=== PATIENT | female | born 1970 | race Caucasian/White ===

== ENCOUNTER → 2018-06-21 14:08 | Outpatient (CLI) | payer BC, SELFPAY ==
--- NOTE | 2018-06-21 14:11 | MM_ITS ---
MM Dig screening mamm BI w/CAD ORDERING PHYSICIAN : Sofi Pierre MD PATIENT AGE: 48 years GENDER: Female COMPARISON: April 2016, 2016, 2014, INDICATION: ITS.REASON: Routine Screening Mammogram. No hormones. No new complaints. Noncontributory family history. Bilateral breast implants .:. TECHNIQUE: Dom technique utilized. CC & MLO images were obtained of the breast tissue overlying implant, as well as a second set of images including the breast implant. Mammography is inherently limited due to the implants is a could obscure areas of breast R2 CAD reviewed. FINDINGS: Stable mild asymmetry. Mild to moderate breast tissue overlying the implants. We again see slightly denser fibroglandular ductal elements in the right retroareolar and than left. There is a island of fibroglandular tissue upper-outer quadrant left breast which appears stable no new, or significant findings either breast. The breast implants are again noted and appear recently stable. Overall no new areas of significant concern identified. IMPRESSION: 1.. Stable bilateral mammogram. With Bilateral breast implants again noted. 2. No new areas of concern.. Bilateral follow-up in one year recommended BI-RADS Category: 1 Negative RECOMMENDED FOLLOW-UP: 1YR 1 YEAR FOLLOW-UP (A letter has been sent to the patient regarding results of the study.)
== END ==
PROVIDERS: PCP Family Medicine; Visit Provider Obstetrics & Gynecology
DX: Z12.31 Encounter for screening mammogram for malignant neoplasm of breast (principal)
CPT/HCPCS: 77067

== ENCOUNTER → 2019-09-01 15:22 | Outpatient (CLI) | payer BC, SELFPAY ==
--- NOTE | 2019-09-01 | XR_ITS ---
PROCEDURE: XR ANKLE WT BEARING RT MIN 3V CLINICAL INDICATION: PAIN IN RT. FOOT Pain and swelling COMPARISON: ANKL3 ANKLE-LT-3 VIEWS from 02/15/2016 HEELL HEEL (OSCALSIS)-LT from 02/15/2016 HEELR HEEL (OSCALSIS)-RT from 02/15/2016 ANKR3 ANKLE-RT-3 VIEWS from 02/15/2016 XR FOOT WT BEARING RT 3V from 09/01/2019 FINDINGS: No fracture, dislocation, lytic change, or blastic change evident. No significant degenerative change. There is mild soft tissue swelling medially and laterally. IMPRESSION: Mild soft tissue swelling otherwise negative Dictated by: Jacobo Slaughter MD 09/01/2019 17:53 Electronically signed by Jacobo Slaughter MD in [place] 09/01/2019 17:53
--- NOTE | 2019-09-01 | XR_ITS ---
PROCEDURE: XR FOOT WT BEARING RT 3V CLINICAL INDICATION: PAIN IN RT. FOOT Pain and swelling COMPARISON: No exams were available for comparison FINDINGS: No fracture or dislocation. No lytic or blastic change. There is normal mineralization. The joint spaces are well-preserved. No significant degenerative/arthritic changes. No erosive changes evident. Other findings:None. IMPRESSION: No acute findings. Dictated by: Jacobo Slaughter MD 09/01/2019 17:54 Electronically signed by Jacobo Slaughter MD in [place] 09/01/2019 17:54
== END ==
PROVIDERS: PCP Family Medicine; Visit Provider Obstetrics & Gynecology
DX: M79.671 Pain in right foot (principal)
CPT/HCPCS: 73610; 73630

== ENCOUNTER → 2020-06-10 08:23 | Outpatient (CLI) | payer BC, SELFPAY ==
--- NOTE | 2020-06-10 08:23 | MM_ITS ---
PROCEDURE: MM DIG SCREENING MAMM BI W/CAD Digital Breast Tomosynthesis Included CLINICAL INDICATION: screening There is no personal or family history of breast cancer. The patient has bilateral breast implants. COMPARISON: MG DMSI DIG MAMM-SCREEN IMPLANT from 05/01/2016 MG DMSI DIG MAMM-SCREEN IMPLANT W/CAD from 05/01/2017 MG SCBI MM Dig screening mamm BI w/CAD from 06/21/2018 TECHNIQUE: Standard CC and MLO images and 3D Tomosynthesis was obtained. R2 CAD reviewed. FINDINGS: The breast implants appear intact with no evidence of leakage moderate scattered fibroglandular densities are seen in the osage breast tissue around the implants. Again slightly increased asymmetric glandular elements are seen right breast. Archie images reveal no suspicious abnormality either breast. There is metallic nipple jewelry left breast. There are no suspicious microcalcifications. IMPRESSION: Stable exam with [id number] fibroglandular densities around both breast implants BI-RAD Category: 2 Benign Finding(s) FOLLOW-UP: 1YR 1 Year Follow-up (A letter has been sent to the patient regarding results of the study.) Dictated by: Dr. Tavon Bañuelos MD 06/17/2020 14:22 Dr. Tavon Bañuelos MD in [place] 06/17/2020 14:22
== END ==
PROVIDERS: PCP Family Medicine; Visit Provider Obstetrics & Gynecology
DX: Z12.31 Encounter for screening mammogram for malignant neoplasm of breast (principal)
CPT/HCPCS: 77063; 77067

== ENCOUNTER → 2020-08-05 11:15 | Outpatient (CLI) | payer BC, SELFPAY ==
[2020-08-05 12:21] LABS: Chol/HDL Ratio 2.8 (1-3.5); Cholesterol 206 mg/dl (140-200); HDL Cholesterol 74 mg/dl (40-60); Triglycerides 120 mg/dl (30-150); VLDL Cholesterol 24 mg/dL (0-40)
[2020-08-05 12:32] LABS: Direct LDL Cholesterol 102.81 mg/dL (100-129)
== END ==
PROVIDERS: Visit Provider Physician Assistant
DX: E78.89 Other lipoprotein metabolism disorders (principal)
CPT/HCPCS: 36415; 80061

== ENCOUNTER → 2021-06-24 09:48 | Outpatient (CLI) | payer BC, SELFPAY ==
--- NOTE | 2021-06-24 09:48 | MM_ITS ---
PROCEDURE INFORMATION: Exam: MG Bilateral Screening 3D Mammography Exam date and time: 06/24/2021 9:48 AM Age: 51 years old Clinical indication: Encounter for screening mammogram for malignant neoplasm of breast TECHNIQUE: Imaging protocol: Bilateral screening tomosynthesis and 2D mammography including computer-aided detection (CAD) when performed. COMPARISON: 1. MG MM DIG SCREENING MAMM BI W/CAD 06/10/2020 8:32 AM 2. MG SCBI MM Dig screening mamm BI w/CAD 06/21/2018 2:42 PM FINDINGS: MAMMOGRAPHY: Breast composition: The breast tissue is heterogeneously dense, which may obscure small masses. Mass: None. Architectural distortion: None. Calcifications: No suspicious calcifications. Asymmetric density: None. Skin thickening: None. Axillary adenopathy: None. Implants: Subpectoral saline breast implants are present. IMPRESSION: No mammographic evidence of malignancy. Annual screening is recommended unless otherwise clinically indicated. ASSESSMENT: BI-RADS Category 1: Negative
== END ==
PROVIDERS: PCP Family Medicine; Visit Provider Obstetrics & Gynecology
DX: Z12.31 Encounter for screening mammogram for malignant neoplasm of breast (principal)
CPT/HCPCS: 77063; 77067

== ENCOUNTER → 2022-07-19 08:23 | Outpatient (CLI) | payer BC, SELFPAY ==
--- NOTE | 2022-07-19 08:23 | MM_ITS ---
PROCEDURE INFORMATION: Exam: MG Bilateral Screening 3D Mammography Exam date and time: 07/19/2022 8:15 AM Age: 52 years old Clinical indication: Screening examination; Additional info: Screening mammogram TECHNIQUE: Imaging protocol: Bilateral Screening tomosynthesis and 2D mammography including computer-aided detection (CAD) when performed. COMPARISON: 1. MG MM DIG SC MAMM IMPLANT BI CAD 06/24/2021 9:43 AM 2. MG MM DIG SCREENING MAMM BI W/CAD 06/10/2020 8:32 AM 3. MG SCBI MM Dig screening mamm BI w/CAD 06/21/2018 2:42 PM FINDINGS: MAMMOGRAPHY: Breast composition: There are scattered areas of fibroglandular density. Mass: No suspicious masses. Architectural distortion: No suspicious distortion. Calcifications: No suspicious calcifications. Asymmetric density: None. Skin thickening: None. Axillary adenopathy: None. Implants: Bilateral subpectoral saline breast implants noted. IMPRESSION: No mammographic evidence of malignancy. Annual screening is recommended unless otherwise clinically indicated. ASSESSMENT: BI-RADS Category 1: Negative
== END ==
PROVIDERS: PCP Family Medicine; Visit Provider Obstetrics & Gynecology
DX: Z12.31 Encounter for screening mammogram for malignant neoplasm of breast (principal)
CPT/HCPCS: 77063; 77067

== ENCOUNTER → 2022-08-21 12:09 | Outpatient (CLI) | payer BC, SELFPAY ==
[2022-08-22 13:49] LABS: H. pylori Breath Test Negative (Negative)
== END ==
PROVIDERS: PCP Family Medicine; Visit Provider Family Medicine
DX: R12 Heartburn (principal)
CPT/HCPCS: 83013

== ENCOUNTER 2022-10-24 09:41 | Day surgery (SDC) | payer BC, SELFPAY ==
[2022-10-24 09:56] VITALS: BP 134/77; PULSE 88; RESP 18; TEMP 37.5; O2SAT 99; BMI 27.3
--- NOTE | 2022-10-24 10:06 | P.PCN_ITS ---
Procedure: Date: 10/24/22 Patient Date of :: 1970 Procedure Performed:: Colonoscopy Indications:: Screening Performing Provider:: Sherman Dominguez MD Referring Provider:: . Sedation:: Monitored anesthesia care Procedure:: After informed consent was obtained the patient was taken to the endoscopy suite. Sedation ensued after the patient was transferred to the left lateral decubitus position. Pulse, blood pressure, and oxygen saturation were monitored throughout the procedure. Digital rectal exam revealed no significant abnormality. The colonoscope was placed in position. The entire colon was eval uated. The colonoscope was carefully removed and the patient was transferred to recovery in stable condition. Please see findings and specimens below for detail. Findings:: Bowel preparation fair to moderate Significant spasticity/lack of relaxation Moderate tortuosity Specimens:: none Recommendations:: Repeat colonoscopy in 2-3 years with extended/alternate bowel preparation. If repeat colonoscopy reveals no significant abnormality the timing of future colonoscopies will likely be extended. Complications:: No immediate Estimated blood obtained (mL): 0
[2022-10-24 10:14] VITALS: O2SAT 97
--- NOTE | 2022-10-24 10:20 | EXP.ANES.CKL ---
[facility] Disclaimer: The information contained in this section may have been updated after the patient was seen, as this information can be updated by other users. Medical History Allergies Asthma History of gastroesophageal reflux (GERD) Neuropathy Skin cancer Surgical History History of breast augmentation Family History Other Diabetes FHx: multiple myeloma Heart attack Social History Smoking Status: Never smoker alcohol intake: never substance use type: denies use current occupational status: employed Travel in the last 8 weeks: None caffeine: Yes [facility] Anesthesia Checklist Patient Identification Patient Identification: Arm Band Structural Data Admitted From: Home Planned Operative Procedure/s: colonoscopy Consent for Planned Operative Procedure(s) Verified: Yes Verified Documents: Surgical Consent and History and Physical NPO Status Verified Time NPO: 00:00 Additional verifications Anesthesia Reactions: No Airway Assessment C-Spine Mobility Assessed: Yes TMJ Mobility Assessed: Yes Dentition: Good Dentition Neurological Assessment Level of Consciousness: Awake and Alert Anesthesia Plan Anesthesia Risk discussed: Yes Anesthesia Plan: Verified ASA Class: II Anesthesia Type: MAC
[2022-10-24 11:03] VITALS: BP 102/56; PULSE 92; RESP 17; TEMP 36.2; O2SAT 100
[2022-10-24 11:13] VITALS: BP 99/58; PULSE 92; RESP 16; O2SAT 100
[2022-10-24 11:23] VITALS: BP 111/70; PULSE 90; RESP 17; O2SAT 100
[2022-10-24 11:33] VITALS: BP 120/73; PULSE 74; RESP 17; O2SAT 100
== END 2022-10-24 10:15 | disposition home or self-care (01) ==
PROVIDERS: PCP Family Medicine; Visit Provider Surgery
PROC: 0DJD8ZZ Inspection of Lower Intestinal Tract, Via Natural or Artificial Opening Endoscopic (ICD-10-PCS; CPT 45378; principal; 2022-10-24 10:30)
DX: Z12.11 Encounter for screening for malignant neoplasm of colon (principal); Z79.899 Other long term (current) drug therapy
CPT/HCPCS: 45378; J2704

== ENCOUNTER 2023-11-19 08:25 | Outpatient (CLI) | payer BC, SELFPAY ==
--- NOTE | 2023-11-19 08:26 | MM_ITS ---
PROCEDURE INFORMATION: Exam: MG Bilateral Screening 3D Mammography Exam date and time: 11/19/2023 8:20 AM Age: 53 years old Clinical indication: Screening mammogram TECHNIQUE: Imaging protocol: Bilateral Screening tomosynthesis and 2D mammography including computer-aided detection (CAD) when performed. COMPARISON: 1. MG MM DIG SC MAMM IMPLANT BI CAD 07/19/2022 8:15 AM 2. MG MM DIG SC MAMM IMPLANT BI CAD 06/24/2021 9:43 AM 3. MG MM DIG SCREENING MAMM BI W/CAD 06/10/2020 8:32 AM 4. MG SCBI MM Dig screening mamm BI w/CAD 06/21/2018 2:42 PM FINDINGS: MAMMOGRAPHY: Breast composition: There are scattered areas of fibroglandular density. Mass: None. Architectural distortion: No new or suspicious architectural distortion. Calcifications: No new or suspicious calcifications are present Asymmetric density: No new or suspicious asymmetric density is present Skin thickening: None. Axillary adenopathy: None. Implants: Subpectoral saline augmentation implants are present. IMPRESSION: No mammographic evidence of malignancy. Recommend annual screening mammography unless otherwise clinically indicated. ASSESSMENT: BI-RADS category 1: Negative.
== END 2023-11-19 23:59 | disposition home or self-care (01) ==
LOC: RAD 08:26
PROVIDERS: PCP Family Medicine; Visit Provider Obstetrics & Gynecology
DX: Z12.31 Encounter for screening mammogram for malignant neoplasm of breast (principal)
CPT/HCPCS: 77063; 77067

== ENCOUNTER 2024-11-18 08:39 | Day surgery (SDC) | payer BC, SELFPAY ==
[2024-11-18 08:55] VITALS: BP 132/77; PULSE 76; RESP 18; TEMP 36.7; O2SAT 99; BMI 24.9
[2024-11-18] MEDS: LACTATED RINGERS 1000ML 1,000 ML 50 ML IV (09:00)
--- NOTE | 2024-11-18 09:26 | P.HP_ITS ---
HPI HPI HPI: This is a 54-year-old female who presents for screening colonoscopy. Note: In October 2022 she underwent a colonoscopy that was somewhat complicated by severe spasticity/lack of relaxation. Her bowel preparation was fair to moderate. Moderate tortuosity also noted. A short-term reevaluation deemed warranted. [facility] Disclaimer: The information contained in this section may have been updated after the patient was seen, as this information can be updated by other users. Medical History (Updated 11/18/24 @ 09:27 by Sherman Dominguez MD) Asthma Neuropathy History of gastroesophageal reflux (GERD) Allergies Skin cancer Surgical History History of breast augmentation Family History Diabetes Heart attack FHx: multiple myeloma Social History Smoking Status: Never smoker alcohol intake: never substance use type: denies use current occupational status: employed Travel in the last 8 weeks?: None caffeine: Yes Have you lived/traveled outside US in past 30 days?: No Contact w/someone who lives/traveled outside US past 30 days?: No Exposure to someone with infectious disease in past 14 days?: No Do you have a fever (greater than 100.4 F or 38 C)?: No Have you tested positive for COVID-19?: No Exposed to someone with COVID-19 in past 14 days?: No Do you have a sore throat?: No Do you have a cough?: No Do you have any weakness?: No Do you have any diarrhea?: No Are you experiencing any unusual bleeding?: No Do you have any muscle aches/pain?: No Do you have any abdominal pain?: No Are you experiencing loss of taste or smell?: No Other Medical History Have you received the Pneumonia Vaccine: No Review of Systems Review of Systems Review of systems:: pertinent systems reviewed and negative unless documented below Meds Home Medications and Allergies Home Medications ?Medication ?Instructions ?Recorded ?Confirmed ?Type omeprazole 40 mg capsule,delayed 40 mg PO NEEDED PRN gerd 11/18/24 11/18/24 History release New Prescriptions to Start Prescriptions: Allergies Allergy/AdvReac Type Severity Reaction Status Date / Time No Known Allergies Allergy Verified 11/18/24 08:53 Exam Data for Last 24 hours Vital signs and Labs for Last 24 Hours: Temp Pulse Resp BP Pulse Ox O2 Del Method 98.1 F 76 18 132/77 99 Room Air 11/18/24 08:55 11/18/24 08:55 11/18/24 08:55 11/18/24 08:55 11/18/24 08:55 11/18/24 08:55 I & O for Last 24 hours: Intake & Output 11/15/24 11/16/24 11/17/24 11/18/24 11:59 11:59 11:59 11:59 Weight 145 lb Constitutional Constitutional: no acute distress *Routine HEENT Exam Head: Present normocephalic Eye: Present EOMI ENT: Present mucous membranes moist *Routine Neck Exam Neck: Present full ROM *Routine Respiratory Exam Respiratory: Absent respiratory distress *Routine Cardiovascular Exam Cardiovascular: Absent tachycardia *Routine Abdominal Exam Abdominal: Present soft *Routine Rectal Exam Rectal:: deferred *Routine Genitalia Exam Genitalia:: deferred *Routine Extremities Exam Extremities: Present full ROM *Routine Skin Exam Skin: Absent erythema *Routine Neurological Exam Neurological: Present alert Assessment and Plan *Assessment and plan (1) Encounter for screening colonoscopy: Status: Acute Category: Medical Code(s): Z12.11 - Encounter for screening for malignant neoplasm of colon Plan: Colonoscopy today I have discussed the risks and benefits including, but not limited to: Bleeding Infection Damage to surrounding tissue Inherent risks of sedation The patient agrees to proceed.
--- NOTE | 2024-11-18 09:27 | HMH.SCOPE ---
Procedure: Date: 11/18/24 Patient Date of :: 1970 Procedure Performed:: Colonoscopy with polypectomy by means other than snare Indications:: Screening Note colonoscopy in October 2022 was complicated by fairly severe spasticity/lack of relaxation. Moderate tortuosity also noted. Her bowel preparation was fair to moderate. A short-term reevaluation deemed warranted. Performing Provider:: Sherman Dominguez MD Referring Provider:: . Sedation:: Monitored anesthesia care Procedure:: After informed consent was obtained the patient was taken to the endoscopy suite. Sedation ensued after the patient was transferred to the left lateral decubitus position. Pulse, blood pressure, and oxygen saturation were monitored throughout the procedure. Digital rectal exam revealed no significant abnormality. The colonoscope was placed in position. The entire colon was evaluated. The colonoscope was carefully removed and the patient was transferred to recovery in stable condition. Please see findings and specimens below for detail. Findings:: Bowel preparation moderate Hemorrhoidal tags Significant spasticity/lack of relaxation Fairly significant tortuosity Small periappendiceal polyp Specimens:: Small periappendiceal polyp (cold biopsy forceps) Recommendations:: Timing of repeat colonoscopy is pending pathology will likely be between 3-5 years secondary to polyp, moderate bowel preparation, and significant spasticity/lack of relaxation. Complications:: No immediate Estimated blood obtained (mL): 1 Colonoscopy Component Colonoscopy Component Was a colonoscopy performed during today's procedure?: Yes Recommended follow up colonoscopy of at least 10 years?: No If no, follow up colonoscopy recommended in ___ years?: (See above) Reason for not recommending >/= 10 yr follow-up interval?: (See above)
--- NOTE | 2024-11-18 09:28 | P.PNANES_ITS ---
[facility] Disclaimer: The information contained in this section may have been updated after the patient was seen, as this information can be updated by other users. Medical History (Updated 11/18/24 @ 09:27 by Sherman Dominguez MD) Asthma Neuropathy History of gastroesophageal reflux (GERD) Allergies Skin cancer Surgical History History of breast augmentation Family History Other Diabetes FHx: multiple myeloma Heart attack Social History Smoking Status: Never smoker alcohol intake: never substance use type: denies use current occupational status: employed Travel in the last 8 weeks?: None caffeine: Yes Have you lived/traveled outside US in past 30 days?: No Contact w/someone who lives/traveled outside US past 30 days?: No Exposure to someone with infectious disease in past 14 days?: No Do you have a fever (greater than 100.4 F or 38 C)?: No Have you tested positive for COVID-19?: No Exposed to someone with COVID-19 in past 14 days?: No Do you have a sore throat?: No Do you have a cough?: No Do you have any weakness?: No Do you have any diarrhea?: No Are you experiencing any unusual bleeding?: No Do you have any muscle aches/pain?: No Do you have any abdominal pain?: No Are you experiencing loss of taste or smell?: No [facility] Anesthesia Checklist Patient Identification Patient Identification: Arm Band Structural Data Admitted From: Home Planned Operative Procedure/s: Colonoscopy Consent for Planned Operative Procedure(s) Verified: Yes Verified Documents: Surgical Consent and History and Physical NPO Status Verified Time NPO: 05:00 (finished prep) Additional verifications Anesthesia Reactions: No Airway Assessment Mallampati Score:: Class II C-Spine Mobility Assessed: Yes TMJ Mobility Assessed: Yes Dentition: Good Dentition Neurological Assessment Level of Consciousness: Awake, Alert and Appropriate Anesthesia Plan Anesthesia Risk discussed: Yes Anesthesia Plan: Verified ASA Class: II Anesthesia Type: MAC
[2024-11-18 09:37] VITALS: O2SAT 99
[2024-11-18 10:17] VITALS: BP 97/59; PULSE 86; RESP 16; TEMP 36.1; O2SAT 98
[2024-11-18 10:27] VITALS: BP 132/63; PULSE 75; RESP 16; O2SAT 99
[2024-11-18 10:37] VITALS: BP 100/68; PULSE 70; RESP 16; O2SAT 99
== END 2024-11-18 10:37 | disposition home or self-care (01) ==
PROVIDERS: PCP Family Medicine; Visit Provider Surgery
PROC: 0DJD8ZZ Inspection of Lower Intestinal Tract, Via Natural or Artificial Opening Endoscopic (ICD-10-PCS; CPT 45380; principal; 2024-11-18 10:00)
DX: Z12.11 Encounter for screening for malignant neoplasm of colon (principal); K64.9 Unspecified hemorrhoids; K63.5 Polyp of colon
CPT/HCPCS: 45380; J2704; J7120

== ENCOUNTER 2024-12-29 12:50 | Outpatient (RCR) | payer BC, SELFPAY | END 2025-01-05 23:59 | disposition home or self-care (01) | LOC: OT 12:50 | PROVIDERS: PCP Family Medicine; Visit Provider Psychiatry & Neurology Clinical Neurophysiology | DX: G60.0 Hereditary motor and sensory neuropathy (principal) | CPT/HCPCS: 97166 ==

== ENCOUNTER 2024-12-29 12:52 | Outpatient (RCR) | payer BC, SELFPAY | END 2024-12-29 23:59 | disposition home or self-care (01) | LOC: PT 12:52 | PROVIDERS: PCP Family Medicine; Visit Provider Psychiatry & Neurology Clinical Neurophysiology | DX: G60.0 Hereditary motor and sensory neuropathy (principal) | CPT/HCPCS: 97161 ==

== ENCOUNTER 2025-01-19 16:18 | Outpatient (CLI) | payer BC, SELFPAY ==
--- OUTSIDE RECORDS SUMMARY | 2023-11-05 06:30 | XMS_ITS ---
Author Organization [facility] Address [address] [facility] [address] [place] [address] Care Team Providers Care Civil Rights Representative Name Role Phone Kaylee Tapia Unavailable [phone] Allergies No Known Allergies Social History Sex Assigned At : Social History Observation Description Sex Assigned At Female Social History Additional Details Category Social Info Options Details Miscellaneous: Domestic violence: No Section Notes: Are you interested in a treatment program?: No Do you have any jainism or culture customs that your provider should know about?: No Do you now or have you ever smoked or used tobacco products?: No Have you ever used any recreational drugs?: Yes Have you had a drink containing alcohol in the last year?: Yes How long since you last used?: 3 months How often did you have a drink containing alcohol in the last year?: Less than monthly How often do you use?: Seldom Type of use: Marijuana Would you object to blood products in the event of an emergency?: No Encounters Encounter Location Date Provider Diagnosis [facility] [address] [place] [address] [address] [place] [address] 11/05/2023 Kaylee Tapia Plan Of Treatment No Information Progress Notes * Maria Isabel ROSENBAUMOB:1970 ( 54 yo F)Acc No.[id number]:11/05/2023 Patient: Sylvia CEBALLOS :1970 A ge:53 Y S ex:Female Address:[facility] [place], [address] Subjective: * Chief Complaints: * Medical History: Menopausal None None of these apply Asthma GERD/Acid Reflux 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 Special assistance needed for care: None * 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 L ast Colon Cancer Screening Date: (Historical) normal. B irth control (Historical) N othing. A bnormal pap smear (Historical) N o. S exually Transmitted Infections (STIs) H uman Papilloma Virus (HPV). L ast Pap Smear/HPV Date (Historical) clear. M enopause (Historical) B artemio at age: [age] S ymptoms: W [age] Gain, Decrease Libido * Surgical History: Breast Augmentation * Family History: F amily History Verified.. Family History: Family history known Heart Disease: Maternal Grandfather Stroke: Paternal Grandfather Please list all other disorder(s) and specify the relationship for each: Multiple Myloma- mom. * Social History: M iscellaneous: D omestic violence: No. S ocial History Verified. A re you interested in a treatment program?: No Do you have any jainism or culture customs that your provider should know about?: No Do you now or have you ever smoked or used tobacco products?: No Have you ever used any recreational drugs?: Yes Have you had a drink containing alcohol in the last year?: Yes How long since you last used?: 3 months How often did you have a drink containing alcohol in the last year?: Less than monthly How often do you use?: Seldom Type of use: Marijuana Would you object to blood products in the event of an emergency?: No. * Allergies: N .K.D.A. * * Date:
--- OUTSIDE RECORDS SUMMARY | 2025-01-19 16:19 | XMS_ITS | Clinical Summary ---
Author Organization [facility] Address [address] [place] [address] Care Team Providers Care Executive Creative Director Name Role Phone Bhavik Wall MD Primary Care Provider Social History Tobacco Use Types Packs/Day Years Used Date Smoking Tobacco: Never Assessed Comments Unknown Sex and Gender Information Value Date Recorded Sex Assigned at Not on file Legal Sex Female 10:23 AM EST Gender Identity Not on file Sexual Orientation Not on file Plan of Treatment Health Maintenance Due Date Last Done Comments Cologuard 1970 Colonoscopy 1970 Colorectal Cancer Screening 1970 FIT 1971 Lipid Screening 1989 Tetanus Vaccination (Every 10 Years) 1989 Cervical Cancer Screening 01/30/1992 Breast Cancer Screening 2021 Pneumococcal Vaccine: 50+ Years (1 of 1 - PCV) 021 Zoster-RZV(Shingrix) (1 of 2) 2021 COVID-19 Vaccine (1 - 2023- season) 2024 Depression Screening 07/09/2024 Influenza Vaccination (#1) 2025 Care Teams Executive Creative Director Relationship Specialty Start Date End Date Bhavik Wall MD [address] [place] [address] [place] [address] PCP - General Family Medicine 05/19/16
--- OUTSIDE RECORDS SUMMARY | 2025-01-19 16:19 | XMS_ITS | Clinical Summary ---
Author Organization [facility] Address [address] [place] [address] Care Team Providers Care All Terrain Vehicle Racer Name Role Phone Bhavik Wall MD Primary Care Provider [phone] Allergies No known active allergies Medications montelukast (Singulair) 10 MG tablet TAKE 1 TABLET BY MOUTH EVERY EVENING NEEDED FOR ALLERGY SEASON FOR 90 DAYS 10/02/2023 Active Encounters Date Type Department Care Team Description 01/02/2025 Telephone [place] [id number] [phone] Zainab Tucker MD 11/27/2024 Orders Only [address] [phone] Zainab Tucker MD Acvmquo-Vxuzt-Jnzba disease (Primary Dx) 11/03/[address] [phone] Zainab Tucker MD HCN - Patient Message (PT order requested) from Last 3 Months Social History Tobacco Use Types Packs/Day Years Used Date Smoking Tobacco: Never Smokeless Tobacco: Never Tobacco Cessation:Counseling Given: Not Answered Alcohol Use Standard Drinks/Week Comments Yes 0 (1 standard drink = 0.6 oz pur e alcohol) couple times a month if that. Comments Unknown Sex and Gender Information Value Date Recorded Sex Assigned at Female 02/19/2024 12:20 PM EDT Legal Sex Female 11:35 AM EDT Gender Identity Female 02/19/2024 12:20 PM EDT Sexual Orientation Straight 02/19/2024 12 :20 PM EDT Last Filed Vital Signs Vital Sign Reading Time Taken Comments Blood Pressure 122/88 02/18/2024 1:01 PM EDT Pulse 75 02/18/2024 1:01 PM EDT Temperature - - Respiratory Rate 18 02/18/2024 1:01 PM EDT Oxygen Saturation 78% 02/18/2024 1:01 PM EDT Inhaled Oxygen Concentration - - Weight 71.3 kg (157 lb 3.2 oz) 02/18/2024 1:01 P M EDT Height 162.6 cm (5' 4 ) 02/18/2024 1:01 PM EDT Body Mass Index 26.98 02/18/2024 1:01 PM EDT Plan of Treatment Upcoming Encounters Date Type Department Care Team (Late st Contact Info) Description 04/20/2025 1:30 PM EDT Office Visit [facility] Orthopaedic Surgery & Sports Medicine [address] [place] [address] Zainab Tucker MD [address] [place] [address] Health Maintenance Due Date Last Done Comments [facility]-Depression Screening 1971 [facility]-HIV Screening 1971 [facility]-Hepatitis C Screening 1971 [facility]-/Child/Adol SDOH Screenings 1971 [facility]- SDOH Screenings 1989 [facility]-Adult SDOH Screenings 1989 [facility]-DTaP,Tdap,and Td Vaccine s (1 - Tdap) 1990 [facility]-Hepatitis B Vaccines (1 of 3 - 19+ 3-dose series) 1990 [facility]-Pap Smear 01/30/1992 [facility]-Cervical Cancer Screening 2001 [facility]-HPV/Cotest 2001 CT Colonography 01/30/2016 Colonoscopy 01/30/2016 FIT-DNA 01/30/2016 FIT 01/30/2016 FOBT 01/30/2016 Sigmoidoscopy 01/30/2016 [facility]-Colorectal Cancer Screening 01/30/2016 [facility]-Breast Cancer Screening 2021 [facility]-Pneumococcal Vaccine: 50 + Years (1 of 1 - PCV) 2021 [facility]-Zoster Vaccines (1 of 2) 2021 07/09/1993 [id number] Vaccine (4 - season) 2024 06/27/2021, 10/18/2020, 09/20/2020 [facility]-Influenza Vaccine (#1) 2025 06/01/2023 [facility]-Obesity Intervention Completed 024, 02/18/2024 HPV Vaccines Aged Out No longer eligi ble based on patient's age to complete this topic [facility]-HIB Vaccines Aged Out No longer e ligible based on patient's age to complete this topic [facility]-Hepatitis A Vaccines Aged Out No longer eligible based on patient's age to complete this topic [facility]-IPV Vaccines Aged Out No longer e ligible based on patient's age to complete this topic [facility]Y-Rotavirus Vaccines Aged Out No lo nger eligible based on patient's age to complete this topic Insurance Care Teams All Terrain Vehicle Racer Relationship Specialty Start Date End Date Bhavki Wall MD [address] [facility] [address] [place] [address] [facility] - General 02/18/24
--- OUTSIDE RECORDS SUMMARY | 2025-01-19 16:19 | XMS_ITS | Encounter Summary ---
Author Organization [facility] Address [address] [place] [address] Care Team Providers Care Crosscutter Name Role Phone Bhavik Wall MD Primary Care Provider [phone] Reason for Visit * Reason Onset Date Comments HCN - Patient Message 11/03/2024 PT order r equested Encounter Details Date Type Department Care Team (Late st Contact Info) Description 11/03/2024 [facility]phone [facility] [address] [place] [address] Zainab Tucker MD [address] [place] [address] HCN - Patient Message (PT order requested) Social History Tobacco Use Types Packs/Day Years Used Date Smoking Tobacco: Never Smokeless Tobacco: Never Alcohol Use Standard Drinks/Week Comments Yes 0 (1 standard drink = 0.6 oz pur e alcohol) couple times a month if that. Comments Unknown Sex and Gender Information Value Date Recorded Sex Assigned at Female 02/19/2024 12:20 PM EDT Legal Sex Female 11:35 AM EDT Gender Identity Female 02/19/2024 12:20 PM EDT Sexual Orientation Straight 02/19/2024 12 :20 PM EDT documented as of this encounter Miscellaneous Notes * Telephone Encounter - Emile Arguelles - 11/04/2024 3:32 PM EDT Emailed patients order * Telephone Encounter - Darell Taveras - 11/03/2024 9:54 AM EDT Patient Phone Message Reason for Call: Patient requesting an order for PT emailed to her at [email or web address] Best contact number and optimal time of day to reach caller: Reachable at [phone] Note: Please do not reply to this message. Follow-up communication and further actions as a result of this message need to be communicated with the patient directly, if the patient is not active onMyChart. If the patient is active on MyChart, they will receive notification of the communication/outcome via [employer]. documented in this encounter Plan of Treatment Upcoming Encounters Date Type Department Care Team (Late st Contact Info) Description 04/20/2025 1:30 PM EDT Office Visit [facility] Orthopaedic Surgery & Sports Medicine [address] [place] [address] Zainab Tucker MD [address] [place] [address] documented as of this encounter Visit Diagnoses Not on filedocumented in this encounter Additional Health Concerns Assessment Noted Time A fall risk assessment has been complete d for the patient 02/18/2024 1:07 PM EDT A Body Mass Index follow-up plan has been documented for the patient 06/27/2024 1:16 PM EST documented as of this encounter Care Teams Crosscutter Relationship Specialty Start Date End Date Bhavik Wall MD [address] [facility] [address] [place] [address] PCP - General 02/18/24 documented as of this encounter
--- OUTSIDE RECORDS SUMMARY | 2025-01-19 16:19 | XMS_ITS | Encounter Summary ---
Author Organization [facility] Address [address] [place] [address] Care Team Providers Care Television Production Technician Name Role Phone Bhavik Wall MD Primary Care Provider [phone] Reason for Referral * Consultation (Routine) - Authorized Specialty Diagnoses / Procedures Referred By Gaurav falk Referred To Contact Occupational Therapy Diagnoses Vivxkca-Vurtr-Lwkxf disease Zainab Tucker MD [address] [address] Phone: tel: fax: [facility] () [address] [place] [address] Phone: tel: fax: Referral ID Status Reason Start Date Expiration Date Visits Requested Visits Authorized [id number] Authorized Consult and Treat 11/27/2024 05/29/2026 1 1 Scheduling Instructions 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 Requesting occupational therapy for improved function. * Consultation (Routine) - Authorized Specialty Diagnoses / Procedures Referred By Gaurav falk Referred To Contact Physical Therapy Diagnoses Rtirrqb-Dgice-Yhocz disease Zainab Tucker MD [address] [address] Phone: tel: fax: [facility] () [address] [place] [address] Phone: tel: fax: Referral ID Status Reason Start Date Expiration Date Visits Requested Visits Authorized [id number] Authorized Consult and Treat 11/27/2024 05/29/2026 1 1 Scheduling Instructions Patient with bilateral lower extremity (foot and leg) deformity, weakness and paresthesias. Physical therapy for evaluation, treatment and gait training. Encounter Details Date Type Department Care Team (Late st Contact Info) Description 11/27/2024 Orders Only [facility] [address] [place] [address] Zainab Tucker MD [address] [place] [address] Mlrolaz-Tqifg-Xxeww disease (Primary Dx) Social History Tobacco Use Types Packs/Day Years [...] as of this encounter Miscellaneous Notes * Progress Notes - Zainab Tucker MD - 11/27/2024 4:28 PM EDT New orders for PT/OT placed for [facility]. documented in this encounter Plan of Treatment Upcoming Encounters Date Type Department Care Team (Late st Contact Info) Description 04/20/2025 1:30 PM EDT Office Visit [facility] Orthopaedic Surgery & Sports Medicine [address] [place] [address] Zainab Tucker MD [address] [place] [address] Scheduled Referrals Name Type Priority Associated Diagnoses Order Schedule Ambulatory referral to Physical Therapy Outpatient Referral Routine Pfqgrvy-Bdptd-Zsvw h disease 1 Occurrences starting 11/27/2024 until 05/30/2026 Ambulatory referral to Occupational Therapy Outpatient Referral Routine Rlzbrck-Cwlso-Mecm h disease 1 Occurrences starting 11/27/2024 until 05/30/2026 documented as of this encounter Visit Diagnoses Diagnosis 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
--- OUTSIDE RECORDS SUMMARY | 2025-01-19 16:19 | XMS_ITS | Encounter Summary ---
Author Organization [facility] Address [address] [place] [address] Care Team Providers Care Interface Designer Name Role Phone Bhavik Wall MD Primary Care Provider [phone] Encounter Details Date Type Department Care Team (Late st Contact Info) Description 01/02/2025 Telephone [facility] [address] [place] [address] Zainab Tucker MD [address] [facility] [address] [place] [address] Social History Tobacco Use Types Packs/Day Years [...] PM EDT documented as of this encounter Plan of Treatment Upcoming Encounters Date Type Department Care Team (Late st Contact Info) Description 04/20/2025 1:30 PM EDT Office Visit [facility] Orthopaedic Surgery & Sports Medicine [address] [place] [address] Zainab Tucker MD [address] [facility] [address] [place] [address] documented as of this encounter Visit Diagnoses Not on filedocumented in this encounter Additional Health Concerns Assessment Noted Time A fall risk assessment has been complete d for the patient 02/18/2024 1:07 PM EDT A Body Mass Index follow-up plan has been documented for the patient 06/27/2024 1:16 PM EST documented as of this encounter Care Teams Interface Designer Relationship Specialty Start Date End Date Bhavik Wall MD [address] [place] [address] PCP - General 02/18/24 documented as of this encounter
--- OUTSIDE RECORDS SUMMARY | 2025-01-19 16:20 | XMS_ITS | Clinical Summary ---
Author Organization [facility] Address [address] [place] [address] Phone Care Team Providers Care Hadoop Software Engineer Name Role Phone Bhavik Wall MD Primary Care Provider [phone] Social History Tobacco Use Types Packs/Day Years Used Date Smoking Tobacco: Never Assessed Comments Unknown Sex and Gender Information Value Date Recorded Sex Assigned at Not on file Legal Sex Female 11:30 AM EDT Gender Identity Not on file Sexual Orientation Not on file Plan of Treatment Health Maintenance Due Date Last Done Comments Annual Wellness Exam 1974 DTaP/TDaP/Td (1 - Tdap) 1990 Hepatitis B Vaccine (1 of 3 - 19+ 3-dose series) 1990 Cervical Cancer Screening 01/30/1992 Pap Smear 01/30/1992 HPV/Pap Cotest 2001 Breast Cancer Screening 2011 Cologuard 01/30/2016 Colon Cancer Screening 01/30/2016 Colonoscopy 01/30/2016 FIT 01/30/2016 Sigmoidoscopy 01/30/2016 Virtual Colonography 01/30/2016 Pneumococcal Vaccine 50+ (1 of 1 - PCV) 2021 Zoster (1 of 2) 2021 COVID-19 Vaccine ( - 2023-2 5 season) 2024 Influenza Vaccine (#1) 2025 Meningococcal B Vaccine Aged Out No l onger eligible based on patient's age to complete this topic Insurance [employer] PPO Care Teams Hadoop Software Engineer Relationship Specialty Start Date End Date Bhavik Wall MD [address] [place] [address] PCP - General Family Medicine 07/09/16
--- OUTSIDE RECORDS SUMMARY | 2025-01-19 16:20 | XMS_ITS | Patient Health Record ---
Author Organization [facility] Address [address] [place] [address] Care Team Providers Care Medical Customer Service Representative Name Role Phone Kaylee Tapia Unavailable [phone] Allergies No Known Allergies Reason For Referral No Information Immunizations Vaccine Route Administration Date Status Comme nts Influenza, seasonal Unknown 07/09/2022 Administered SARS-COV-2 Unknown 07/09/2020 Administered 2020 Varicella Unknown 07/09/1993 Administered 1993 Social History Sex Assigned At : Social History Observation Description Sex Assigned At Female Social History Additional Details Category Social Info Options Details Miscellaneous: Domestic violence: No Section Notes: Are you interested in a treatment program?: No Do you have any nondenominational or culture customs that your provider should [...] in the event of an emergency?: No Are you interested in a treatment program?: No Do you have any nondenominational or culture customs that your provider should [...] in the event of an emergency?: No Plan Of Treatment No Information Insurance Providers Payer Name Payer Address Payer Phone Subscriber Number Group Number Insured Name Patient Relationship to Insured Coverage Start Date Coverage End Date Tabatha CASTILLO [address] [place] [address] [id number] Sylvia Rosenbaum Self - patient is the insured Medical (General) History Medical History History ICD Code Menopausal Asthma GERD/Acid Reflux Surgical History Surgery Date(Month/Year) Breast Augmentation
--- NOTE | 2025-01-19 16:30 | MM_ITS ---
PROCEDURE INFORMATION: Exam: MG Bilateral Screening 3D Mammography Exam date and time: 01/19/2025 4:44 PM Age: 54 years old Clinical indication: Screening. No family history of breast cancer. TECHNIQUE: Imaging protocol: Bilateral Screening tomosynthesis and 2D mammography including computer-aided detection (CAD) when performed. COMPARISON: 1. MG MM DIG SC MAMM IMPLANT BI CAD 11/19/2023 8:20 AM 2. MG MM DIG SC MAMM IMPLANT BI CAD 07/19/2022 8:15 AM 3. MG MM DIG SC MAMM IMPLANT BI CAD 06/24/2021 9:43 AM 4. MG MM DIG SCREENING MAMM BI W/CAD 06/10/2020 8:32 AM FINDINGS: MAMMOGRAPHY: Breast composition: There are scattered areas of fibroglandular density. Mass: No suspicious mass. Architectural distortion: None. Calcifications: No suspicious calcifications. Asymmetric density: None. Skin thickening: None. Axillary adenopathy: None. Other: Subpectoral saline implants. Left nipple ring. IMPRESSION: No mammographic evidence of malignancy. Annual screening is recommended unless otherwise clinically indicated. ASSESSMENT: BI-RADS 1, Negative.
== END 2025-01-19 23:59 | disposition home or self-care (01) ==
LOC: RAD 16:18
PROVIDERS: PCP Family Medicine; Visit Provider Obstetrics & Gynecology
DX: Z12.31 Encounter for screening mammogram for malignant neoplasm of breast (principal); R92.323 Mammographic fibroglandular density, bilateral breasts
CPT/HCPCS: 77063; 77067

== ENCOUNTER 2025-04-27 10:05 | Outpatient (CLI) | payer BC, SELFPAY ==
--- NOTE | 2025-04-27 10:09 | XR_ITS ---
FINAL REPORT CLINICAL HISTORY: Evaluation of Left Ankle Pain COMPARISON: None FINDINGS: LEFT ANKLE Three views demonstrate no acute fracture or dislocation. The visualized joint spaces are normally aligned. The soft tissues are unremarkable. IMPRESSION: No acute bony abnormality. Reviewed, Interpreted and Dictated by Fay Vázquez MD Transcribed by Rosa Figueroa Authenticated and [facility]
--- NOTE | 2025-04-27 10:09 | XR_ITS ---
FINAL REPORT CLINICAL HISTORY: Evaluation of Right Foot Pain COMPARISON: None FINDINGS: RIGHT FOOT: Three views show no evidence of acute displaced fracture or dislocation of the visualized bony architecture. A mild hallux valgus deformity is noted. The joint spaces appear normal. IMPRESSION: Unremarkable exam. Reviewed, Interpreted and Dictated by Fay Vázquez MD Transcribed by Rosa Figueroa Authenticated and [facility]
--- NOTE | 2025-04-27 10:09 | XR_ITS ---
FINAL REPORT CLINICAL HISTORY: Evaluation of Right Ankle Pain COMPARISON: None FINDINGS: RIGHT ANKLE 3 views of the right ankle were obtained. There is no acute fracture or dislocation. The mortise is intact. Visualized joint spaces are normally aligned. Soft tissues are unremarkable. IMPRESSION: No acute bony abnormality. Reviewed, Interpreted and Dictated by Fay Vázquez MD Transcribed by Rosa Figueroa Authenticated and [facility]
--- NOTE | 2025-04-27 10:09 | XR_ITS ---
FINAL REPORT CLINICAL HISTORY: Evaluation of Left Foot Pain COMPARISON: None FINDINGS: LEFT FOOT Three views show no evidence of acute displaced fracture or dislocation of the visualized bony architecture. A mild hallux valgus deformity is present. The joint spaces appear normal. IMPRESSION: Unremarkable exam. Reviewed, Interpreted and Dictated by Fay Vázquez MD Transcribed by Rosa Figueroa Authenticated and [facility]
--- OUTSIDE RECORDS SUMMARY | 2025-04-27 10:28 | XMS_ITS | Clinical Summary ---
Author Organization [facility] Address [address] [place] [address] Phone Care Team Providers Care Correspondence School Teacher Name Role Phone Bhavik Wall MD Primary Care Provider [phone] Social History Tobacco Use Types Packs/Day Years [...] Zoster (1 of 2) 2021 COVID-19 Vaccine (2024-2 6 season) 2025 Influenza Vaccine (#1) 2025 Meningococcal B Vaccine Aged Out No l onger eligible based on patient's age to complete this topic Insurance [employer] PPO Care Teams Correspondence School Teacher Relationship Specialty Start Date End Date Bhavik Wall MD [address] [place] [address] PCP - General Family Medicine 07/09/16
--- OUTSIDE RECORDS SUMMARY | 2025-04-27 10:28 | XMS_ITS | Clinical Summary ---
Author Organization [facility] Address [address] [place] [address] Care Team Providers Care Yard Manager Name Role Phone Bhavik Wall MD Primary Care Provider [phone] Allergies No known active allergies Medications montelukast (Singulair) 10 MG tablet TAKE 1 TABLET BY MOUTH EVERY EVENING NEEDED FOR ALLERGY SEASON FOR 90 DAYS 10/02/2023 Active Social History Tobacco Use Types Packs/Day Years [...] 02/18/2024 1:01 PM EDT Plan of Treatment Health Maintenance Due Date Last Done Comments [facility]-Depression Screening 1971 [facility]-HIV Screening 1971 [facility]-Hepatitis C Screening 1971 [facility]-Infant/Child/Adol SDOH Screenings 1971 [facility]Y- SDOH Screenings 1989 [...] [facility]Y-Zoster Vaccines (1 of 2) 2021 07/09/1993 [id number] Vaccine ( - 2024- season) 2025 06/27/2021, 10/18/2020, 09/20/2020 [facility]-Influenza Vaccine (#1) 2025 [...] patient's age to complete this topic Insurance ANTHEM Care Teams Yard Manager Relationship Specialty Start Date End Date Bhavik Wall MD [address] [facility] [address] [place] [address] PCP - General 02/18/24
--- OUTSIDE RECORDS SUMMARY | 2025-04-27 10:28 | XMS_ITS | Clinical Summary ---
Author Organization [facility] Address [address] [place] [address] Care Team Providers Care Reagent Tender Helper Name Role Phone Bhavik Wall MD Primary [...] PCV) 021 Zoster-RZV(Shingrix) (1 of 2) 2021 Depression Screening 07/09/2024 COVID-19 Vaccine ( - 2024- season) 2025 Influenza Vaccination (#1) 2025 Care Teams Reagent Tender Helper Relationship Specialty Start Date End Date Bhavik Wall MD [address] [place] [address] [place] [address] PCP - General Family Medicine 05/19/16
== END 2025-04-27 23:59 | disposition home or self-care (01) ==
LOC: RAD 10:07
PROVIDERS: PCP Family Medicine; Visit Provider Podiatrist
DX: M25.572 Pain in left ankle and joints of left foot (principal); M25.571 Pain in right ankle and joints of right foot; M79.671 Pain in right foot; M79.672 Pain in left foot
CPT/HCPCS: 73610; 73630